=== PATIENT | female | born 1945 | race Caucasian/White ===

== ENCOUNTER 2023-03-21 05:02 | Observation (INO) ==
[2023-03-21 05:41] LABS: ABS Lymphocytes 0.8 10^3/uL (1.0-4.8); ABS Monocytes 0.6 10^3/uL (0.0-0.9); ABS Neutrophils 4.2 10^3/uL (1.5-7.6); ABS Nucleated RBC 0.01 10^3/ul; Eosinophil % 0.8 %; Hemoglobin 14.1 g/dL (11.5-14.3); Lymphocyte % 14.8 %; Mean Corpuscular Hemoglobin 31.8 pg (27-33); Mean Corpuscular Hgb Conc 35.3 g/dL (31-36); Mean Corpuscular Volume 90.3 fL (80-97); Mean Platelet Volume 8.8 fL (7.5-11.2); Nucleated Red Blood Cells % 0.1 /100 WBC (0.0-0.4); Platelet Count 218 10^3/uL (150-450); Red Blood Count 4.44 10^6/uL (3.63-4.92); White Blood Count 5.7 10^3/uL (3.8-11.8)
[2023-03-21 05:56] LABS: Albumin 3.8 g/dL (3.2-5.2); Albumin/Globulin Ratio 1.2 (1-3); C Reactive Protein 24.67 mg/L (<8.01); Calcium 9.9 mg/dL (8.6-10.3); Creatinine, Serum 0.52 mg/dL (0.51-0.95); Globulin 3.2 g/dL (2-4); Magnesium 1.5 mg/dL (1.9-2.7); Potassium 3.9 mmol/L (3.5-5.0); Total Bilirubin 0.5 mg/dL (0.2-1.0); eGFR CKD-EPI 93.9 (>60)
[2023-03-21] MEDS ORDERED: Lactated Ringers 1000 ml BAG 1,000 ML IV ONE (06:24)
[2023-03-21] MEDS ORDERED: Magnesium Sulfate 2 gm BAG 2 GM/50 ML BAG IVPB ONE (06:30)
[2023-03-21 06:34] LABS: TSH Ultra Thyroid Stim Horm 9.45 mcIU/mL (0.34-5.60)
[2023-03-21] MEDS ORDERED: Morphine 2 MG/ML SYRINGE IV ONE (07:48)
[2023-03-21] MEDS ORDERED: Ondansetron 4 mg VIAL 2 MG/ML 2 ml VIAL IV PRN (08:00)
[2023-03-21] MEDS ORDERED: Magnesium Hydroxide LIQ 30 ML UDC PO PRN (08:01)
[2023-03-21 10:17] LABS: Calcium 8.8 mg/dL (8.6-10.3); Creatinine, Serum 0.48 mg/dL (0.51-0.95); Potassium 3.7 mmol/L (3.5-5.0); eGFR CKD-EPI 95.7 (>60)
[2023-03-21 10:30] LABS: Free T4 1.34 ng/dL (0.61-1.12)
[2023-03-21] MEDS: Polyethylene Glycol 3350 17 GM PACKET PO SCH (10:45)
[2023-03-21] MEDS: Enoxaparin 40 MG/0.4 ML SYR SUBCUT SCH (10:45)
[2023-03-21] MEDS: Magnesium Hydroxide LIQ 30 ML UDC PO SCH ×2 (10:45→21:44)
[2023-03-21] MEDS ORDERED: NS 0.9% 1000 ml BAG 1,000 ML IV ONE (14:10)
[2023-03-21] MEDS ORDERED: SMOG Enema (MgOH-NS-Gly-MinO) 330 ML ENEMA PR ONE (16:07)
[2023-03-21] MEDS: Senna TAB 8.6 mg TAB PO SCH (21:44)
[2023-03-22 06:37] LABS: Calcium 7.9 mg/dL (8.6-10.3); Creatinine, Serum 0.4 mg/dL (0.51-0.95); Potassium 4.1 mmol/L (3.5-5.0)
[2023-03-22] MEDS ORDERED: NS 0.9% 1000 ml BAG 1,000 ML IV SCH (08:15)
[2023-03-22] MEDS: Polyethylene Glycol 3350 17 GM PACKET PO SCH (09:21)
[2023-03-22] MEDS: Enoxaparin 40 MG/0.4 ML SYR SUBCUT SCH (09:21)
[2023-03-22] MEDS: Magnesium Hydroxide LIQ 30 ML UDC PO SCH ×2 (09:21→22:09)
[2023-03-22 12:30] LABS: Urine Osmo 391 mOsm/kg (150-1150)
[2023-03-22] MEDS: Fluticasone NASAL SPRAY 50MCG 16 gm SPRAY BTL BOTH NARES SCH (14:45)
[2023-03-22 17:31] LABS: Calcium 8.5 mg/dL (8.6-10.3); Creatinine, Serum 0.52 mg/dL (0.51-0.95); Potassium 3.9 mmol/L (3.5-5.0); eGFR CKD-EPI 93.9 (>60)
[2023-03-22 18:29] LABS: Osmolality Serum 282 mOsm/kg (275-295)
[2023-03-22] MEDS: Senna TAB 8.6 mg TAB PO SCH (22:09)
[2023-03-22] MEDS: Lactulose 30 ml UDC PO SCH (22:09)
[2023-03-23 06:35] LABS: Calcium 8.3 mg/dL (8.6-10.3); Creatinine, Serum 0.61 mg/dL (0.51-0.95); Potassium 3.9 mmol/L (3.5-5.0); eGFR CKD-EPI 90.3 (>60)
[2023-03-23] MEDS: Enoxaparin 40 MG/0.4 ML SYR SUBCUT SCH (08:56)
[2023-03-23] MEDS: Magnesium Hydroxide LIQ 30 ML UDC PO SCH (08:58)
[2023-03-23] MEDS: Polyethylene Glycol 3350 17 GM PACKET PO SCH (08:59)
[2023-03-23] MEDS: Lactulose 30 ml UDC PO SCH (09:01)
[2023-03-23] MEDS: Fluticasone NASAL SPRAY 50MCG 16 gm SPRAY BTL BOTH NARES SCH (09:03)
[2023-03-23 10:12] VITALS: BP 135/82
== END 2023-03-23 11:30 | disposition home or self-care (01) ==
LOC: EDHOLD 05:02 → ED 05:02 → SUATTDRO 08:00 → MED 15:37
PROVIDERS: ADMIT Student in an Organized Health Care Education/Training Program; ATTEND Internal Medicine